=== PATIENT | male | born 1975 | race African-American/Black ===

== ENCOUNTER 2017-09-25 09:41 | Emergency (ER) | payer SELFPAY ==
[2016-02-10 08:52] VITALS: BP 133/118
[~2017-09-25] VITALS: Ht 167.6 cm; Wt 108.9 kg
[2017-09-25 10:14] LABS: NEGATIVE OBC STREP NEG; POSITIVE OBC STREP POS
[2017-09-25 10:47] LABS: OBC FLU VALID
[2017-09-25] MEDS ORDERED: DEXA4TAB PO (10:48)
[2017-09-25] MEDS ORDERED: AMOX500C PO (10:48)
--- NOTE | 2017-09-25 10:49 | PHYS DOC ---
Past Medical History Past Medical History: Diabetes-Type II Past Surgical History: No Surgical History Additional Past Surgical Histo: bilateral carpal tunnel release Alcohol Use: None Drug Use: None Adult General Chief Complaint Chief Complaint: SORE THROAT HPI HPI Patient is a 41 year old male presents to the emergency department with a 2 day history of sore throat with a fever 102 yesterday. Patient states he has had continued throat pain with no relief. He denies taking medication for the fever. He denies sick contact. Review of Systems Review of Systems Constitutional: fever denies chills [] Eyes: Denies change in visual acuity, redness, or eye pain [] HENT: Denies nasal congestion C/o sore throat [] Respiratory: Denies cough or shortness of breath [] Cardiovascular: No additional information not addressed in HPI [] GI: Denies abdominal pain, nausea, vomiting, bloody stools or diarrhea [] : Denies dysuria or hematuria [] Musculoskeletal: Denies back pain or joint pain [] Integument: Denies rash or skin lesions [] Neurologic: Denies headache, focal weakness or sensory changes [] Endocrine: Denies polyuria or polydipsia [] All other systems were reviewed and found to be within normal limits, except as documented in this note. Allergies Allergies Allergies Coded Allergies Type Severity Reaction Last Updated Verified No Known Drug Allergies 05/04/15 No Physical Exam Physical Exam Constitutional: Well developed, well nourished, no acute distress, non-toxic appearance. [] HENT: Normocephalic, atraumatic, bilateral external ears normal, oropharynx moist, no oral exudates, nose normal. Bilateral TM normal, throat with erythema , no exudate noted no uvla deviation. Eyes: PERRLA, EOMI, conjunctiva normal, no discharge. [] Neck: Normal range of motion, no tenderness, supple, no stridor. [] Cardiovascular:Heart rate regular rhythm, no murmur [] Lungs & Thorax: Bilateral breath sounds clear to auscultation [] Skin: Warm, dry, no erythema, no rash. [] Extremities: No tenderness, no cyanosis, no clubbing, ROM intact, no edema. [] Neurologic: Alert and oriented X 3, normal motor function, normal sensory function, no focal deficits noted. [] Psychologic: Affect normal, judgement normal, mood normal. [] Current Patient Data Vital Signs Vital Signs Date Time Temp Pulse Resp B/P (MAP) Pulse Ox O2 Delivery O2 Flow Rate FiO2 09/25/17 09:46 98.7 100 20 145/94 (111) 100 Room Air 98.7 Lab Values Laboratory Tests Test 09/25/17 09:52 09/25/17 09:59 Group A Streptococcus Rapid Positive (NEGATIVE) Influenza Type A Antigen Negative (NEGATIVE) Influenza Type B Antigen Negative (NEGATIVE) EKG EKG [] Radiology/Procedures Radiology/Procedures [] Course & Med Decision Making Course & Med Decision Making Pertinent Labs and Imaging studies reviewed. (See chart for details) Rapid strep positive, influenza negative. Patient will be placed on Amoxicillin and decadron. He will be discharged home in stable condition. Recommended Tylenol or Ibuprofen for fever, chills. Recommended plenty of fluids. Change tooth brush 24 hours after being on antibiotics. Signs and symptoms to return to the emergency department has been provided. Patient was recommended to followup with primary care in 5-7 days. Patient agrees with discharge instructions, treatment regimen and followup recommendations. [] Dragon Disclaimer Dragon Disclaimer This electronic medical record was generated, in whole or in part, using a voice recognition dictation system. Departure Departure Impression: Primary Impression: Strep throat Disposition: HOME, SELF-CARE Condition: STABLE Referrals: NO PCP (PCP) Patient Instructions: Strep Throat, [id number] Additional Instructions: Activity as tolerated Antibiotic as prescribed do not stop taking the antibiotic even if you should start feeling better Tylenol or Ibuprofen for fever, or chills Drink plenty of fluids Change your tooth brush in 24 hours Followup with primary care provider in 5-7 days Return to emergency department as needed for signs and symptoms that become worse. Scripts Dexamethasone (DEXAMETHASONE) 4 Mg Tablet 2 TAB PO DAILY, #10 TAB Prov: ANNETTE LEE [employer] OPERATOR 09/25/17 Amoxicillin (AMOXICILLIN) 500 Mg Capsule 1 CAP PO TID, #30 CAP Prov: ANNETTE LEE [employer] OPERATOR 09/25/17 ANNETTE LEE APRN Sep 25, 2017 10:49
== END 2017-09-25 10:57 | disposition home or self-care (01) ==
LOC: ER 09:41
DX: J02.0 Streptococcal pharyngitis (principal); E11.9 Type 2 diabetes mellitus without complications
CPT/HCPCS: 87804; 87880; 99284

== ENCOUNTER 2019-03-20 05:39 | Emergency (ER) | payer SELFPAY ==
[~2019-03-20] VITALS: Ht 165.1 cm; Wt 106.1 kg
[~2019-03-20 05:39] MED LIST: AMOX500C PO; DEXA4TAB PO
[2019-03-20 05:53] VITALS: BP 133/87
[2019-03-20] MEDS ORDERED: AMOX875T PO (05:57)
--- NOTE | 2019-03-20 06:00 | PHYS DOC ---
Past Medical History Past Medical History: Diabetes-Type II Past Surgical History: Other Additional Past Surgical Histo: bilateral carpal tunnel release Alcohol Use: None Drug Use: None Adult General Chief Complaint Chief Complaint: SORE THROAT HPI HPI Patient is a 43 year old male sore throat 2 days worse with swallowing sharp severe similar to when he had strep throat a couple years back he has also been coughing subjective fever no relief with [id number] agents. No other medical problems other than type 2 diabetes which she is treating with diet and exercise Review of Systems Review of Systems Constitutional: Subjective fever Eyes: Denies change in visual acuity, redness, or eye pain [] Cardiovascular: No additional information not addressed in HPI GI: Denies abdominal pain, nausea, vomiting, bloody stools or diarrhea Neurologic: Denies headache, focal weakness or sensory changes All other systems were reviewed and found to be within normal limits, except as documented in this note. Current Medications Current Medications Current Medications Medications (Trade) Dose Ordered Sig/Honey Start Time Stop Time Status Last Admin Dose Admin Ketorolac Tromethamine (Toradol 30mg Vial) 30 mg 1X ONCE 03/20/19 06:00 03/20/19 06:01 UNV Allergies Allergies Allergies Coded Allergies Type Severity Reaction Last Updated Verified No Known Drug Allergies 05/04/15 No Physical Exam Physical Exam Constitutional: Well developed, well nourished, no acute distress, non-toxic appearance. [] HENT: Erythematous tonsils with palatal petechiae shotty lymphadenopathy anterior Neck: Normal range of motion, no tenderness, supple, no stridor. [] Cardiovascular:Heart rate regular rhythm, no murmur [] Lungs & Thorax: Bilateral breath sounds clear to auscultation [] Abdomen: Bowel sounds normal, soft, no tenderness, no masses, no pulsatile masses. [] Skin: Warm, dry, no erythema, no rash. [] Back: No tenderness, no CVA tenderness. [] Extremities: No tenderness, no cyanosis, no clubbing, ROM intact, no edema. [] Neurologic: Alert and oriented X 3, normal motor function, normal sensory function, no focal deficits noted. [] Psychologic: Affect normal, judgement normal, mood normal. [] EKG EKG [] Radiology/Procedures Radiology/Procedures [] Course & Med Decision Making Course & Med Decision Making Pertinent Labs and Imaging studies reviewed. (See chart for details) []Given prior history of strep throat as well as the palatal petechiae we'll treat presumptively with amoxicillin also Toradol was given in the emergency room for symptom relief patient was reassured Blood pressure was in the 130s afebrile not tachycardic see nurse's note for full triage vitals Dragon Disclaimer Dragon Disclaimer This electronic medical record was generated, in whole or in part, using a voice recognition dictation system. Departure Departure Impression: Primary Impression: Pharyngitis Disposition: HOME, SELF-CARE Condition: STABLE Referrals: NO PCP (PCP) Patient Instructions: Sore Throat, [id number]-[id number] Scripts Amoxicillin (AMOXICILLIN) 875 Mg Tablet 1 TAB PO BID, #14 TAB Prov: LUCINDA NEFF MD 03/20/19 LUCINDA NEFF MD Mar 20, 2019 06:00
[2019-03-20] MEDS ORDERED: KETOROLAC 30 MG/ML VIAL. IM ONE (06:15)
== END 2019-03-20 06:15 | disposition home or self-care (01) ==
LOC: ER 05:39
DX: J02.9 Acute pharyngitis, unspecified (principal); R05 Cough; R50.9 Fever, unspecified; R23.3 Spontaneous ecchymoses; R59.1 Generalized enlarged lymph nodes; E11.9 Type 2 diabetes mellitus without complications
CPT/HCPCS: 96372; 99283; J1885

== ENCOUNTER 2021-03-18 03:35 | Emergency (ER) | payer OTHER ==
[~2021-03-18] VITALS: Ht 165.1 cm; Wt 98.0 kg
[~2021-03-18 03:35] MED LIST changes: +AMOX875T PO
[2021-03-18 05:05] VITALS: BP 137/88
[2021-03-18] MEDS ORDERED: DEXAMETHASONE 4 MG TABLET PO ONE (06:15)
[2021-03-18] MEDS ORDERED: BENZ1LOZ48 PO (06:17)
--- NOTE | 2021-03-18 06:18 | PHYS DOC ---
Past Medical History Past Medical History: Diabetes-Type II Past Surgical History: Other Additional Past Surgical Histo: bilateral carpal tunnel release Smoking Status: Never Smoker Alcohol Use: None Drug Use: None General Adult EDM: Chief Complaint: SORE THROAT HPI: HPI: 45-year-old -[place] male who reports to myself no significant past medical history (diabetes per emr) presents the ED with complaints of sore throat for the past 4 days, came to ED today because he woke up and felt as if his throat was "dry and sand was in it." Reports associated dry cough. No associated anorexia, lack of taste or smell, fatigue, weakness, nausea, vomiting, diarrhea, fever or chills, speech changes, difficulties breathing, nasal congestion or rhinorrhea, postnasal drip, rash or head or neck swelling. Patient with no prior history of allergic reaction, asthma or seasonal allergies. Patient is not a tobacco smoker denies any breathing discomfort. No known history of Covid and states he completed his second Covid vaccine in December. Review of Systems: Review of Systems: Constitutional: Denies fever or chills. [] Eyes: Denies change in visual acuity or eye discharge HENT: Denies nasal congestion or rhinorrhea Respiratory: Denies hemoptysis or shortness of breath. [] Cardiovascular: Denies chest pain or edema. [] GI: Denies nausea, vomiting, Musculoskeletal: Denies back pain or joint pain. [] Integument: Denies rash or diaphoresis Neurologic: Denies headache or neck pain Lymphatic: Denies swollen glands. [] Psychiatric: Denies depression or anxiety. [] Heart Score: C/O Chest Pain: No Risk Factors: Risk Factors: DM, Current or recent (<one month) smoker, HTN, HLP, family history of CAD, obesity. Risk Scores: Score 0 - 3: 2.5% MACE over next 6 weeks - Discharge Home Score 4 - 6: 20.3% MACE over next 6 weeks - Admit for Clinical Observation Score 7 - 10: 72.7% MACE over next 6 weeks - Early Invasive Strategies Allergies: Allergies: Allergies Coded Allergies Type Severity Reaction Last Updated Verified No Known Drug Allergies 05/04/15 No Physical Exam: PE: Constitutional: Well developed, well nourished, no acute distress, non-toxic appearance. HENT: Normocephalic, atraumatic, normal oropharynx/is patent, no pharyngeal erythema or exudates, uvula midline, equal tonsillitis, no tonsillar exudate Eyes: EOMI, conjunctiva normal, no discharge, Neck: Normal range of motion, no LAD Cardiovascular: S1/2 present, regular rhythm Lungs & Thorax: Speaking in full sentences, bilateral equal chest rise, no tachypnea or increased work of breathing, no drooling, controlling secretions Skin: Warm, dry, no erythema, no rash. [] Extremities: No tenderness, no cyanosis, Neurologic: Alert and oriented X 3, no focal deficits noted. [] Psychologic: Normal affect, calm mood Current Patient Data: Labs: Laboratory Tests Test 03/18/21 05:14 Group A Streptococcus Rapid Negative (NEGATIVE) Vital Signs: Vital Signs Date Time Temp Pulse Resp B/P (MAP) Pulse Ox O2 Delivery O2 Flow Rate FiO2 03/18/21 05:05 97.8 68 16 137/88 (104) 97 Room Air 97.8 EKG: EKG: [] Radiology/Procedures: Radiology/Procedures: [] Impression: Per Centor score -1 points 1% - 2.5% likelihood of strep No further testing nor antibiotics. Course & Med Decision Making: Course & Med Decision Making Pertinent Labs and Imaging studies reviewed. (See chart for details) Concern for acute pharyngitis 4 days with associated dry cough., Covid unlikely given history, declines testing. Pt HD stable. Normal-appearing throat exam. Rapid strep negative. Dexamethasone given in ED and will prescribe Cepacol. Will discharge home with strict ED return precautions were given for difficulties breathing, fever, worsening pain, difficulties controlling secretions, head or neck swelling or any concerning symptoms. Encouraged urgent outpatient follow-up with PMD and ENT for definitive management. Life- threatening processes were considered but are low suspicion at this time, given history, physical exam and ED workup. Pt was educated on all prescription medications and adverse effects. All patient's questions were answered and pt was stable at time of discharge. Life/limb-threatening differential includes but is not limited to, arun's angina, peritonsillar abscess, retropharyngeal abscess, epiglottitis, bacterial tracheitis, uvulitis, sepsis, mastoiditis, traumatic injury, carotid/vertebral dissection, intracranial aneurysms or neurologic process. I spoken with the patient and her caregivers. I explained the patient's condition, diagnoses and treatment plan based on the information available to me at this time. I have answered the patient and her caregiver's questions and addressed any concerns. The patient and her caregivers have a good understanding of patient's diagnosis, condition and treatment plan as can be expected at this point. Vital signs have been stable. Patient's condition is stable and appropriate for discharge from the emergency department. Patient will pursue further outpatient evaluation with primary care physician or other designated or consulting physician as outlined in the discharge instructions. The patient and/or caregivers are agreeable to this plan of care and follow-up instructions have been explained in detail. The patient and/or caregivers have received these instructions in written form and have expressed an understanding of the discharge instructions. The patient and/or caregivers are aware that any significant change of condition or worsening of symptoms should prompt immediate return to this or the closest emergency department or call to 911. Ellen Disclaimer: Ellen Disclaimer: This electronic medical record was generated, in whole or in part, using a voice recognition dictation system. Departure Departure Impression: Primary Impression: Acute pharyngitis Disposition: 01 HOME / SELF CARE / HOMELESS Condition: STABLE Referrals: NO PCP (PCP) Follow-up with your primary care physician in 24 to 48 hours for reevaluation or FOLLOW UP WITH FAMILY MEDICINE: [address] [facility], [facility] [address] [place] [address] Patient Instructions: Viral and Bacterial Pharyngitis Additional Instructions: FOLLOW UP WITH ENT: For definitive management Otolaryngology [address] [facility], [address] [place] [address] [facility] [address] [address] EMERGENCY DEPARTMENT GENERAL DISCHARGE INSTRUCTIONS Thank you for coming to [facility] Emergency Department (ED) today and trusting us with you care. We trust that you had a positive experience in our Emergency Department. If you wish to speak to the department management, you may call the Director at [phone]. YOUR FOLLOW UP INSTRUCTIONS ARE FOLLOWS: 1. Do you have a private Doctor? If you do not have a private doctor, please ask for a resource list of physicians or clinics that may be able to assist you with follow up care. 2. The Emergency Physicain has interpreted your x-rays. The X-Ray specialist will also review them. If there is a change in the findings, you will be notified in 48 hours when at all possible. 3. A lab test or culture has been done, your results will be reviewed and you will be notified if you need a change in treatment. ADDITIONAL INSTRUCTIONS AND INFORMATION: 1. Your care today has been supervised by a physician who is specially trained in emergency care. Many problems require more than one evaluation for a complete diagnosis and treatment. We recommend that you schedule your follow up appointment as recommended to ensure complete treatment of you illness or injury. If you are unable to obtain follow up care and continue to have a problem, or if your condition worsens, we recommend that you return to the ED. 2. We are not able to safely determine your condition over the phone nor are we able to give sound medical advice over the phone. For these safety reasons, if you call for medical advice we will ask you to come to the ED for further evaluation. 3. If you have any questions regarding these discharge instructions please call the ED at [phone]. SAFETY INFORMATION: In the interest of safety, wellness, and injury prevention; we encourage you to wear your sealbelt, if you smoke; quite smoking, and we encourage family to use a protective helmet for bicycling and other sporting events that present an increased risk for head injury. IF YOUR SYMPTOMS WORSEN OR NEW SYMPTOMS DEVELOP, OR YOU HAVE CONCERNS ABOUT YOUR CONDITION; OR IF YOUR CONDITION WORSENS WHILE YOU ARE WAITING FOR YOUR FOLLOW UP APPOINTMENT; EITHER CONTACT YOUR PRIMARY CARE DOCTOR, THE PHYSICIAN WHOSE NAME AND NUMBER YOU WERE GIVEN, OR RETURN TO THE ED IMMEDIATELY. Scripts Benzocaine/Menthol (CEPACOL SORE THROAT LOZENGE) 1 Each Lozenge 1 TAB PO Q4HRS for sore throat for 3 Days, #18 TAB 0 Refills Prov: CHANA CROWDER DO 03/18/21 CHANA CROWDER DO Mar 18, 2021 06:18
== END 2021-03-18 06:35 | disposition home or self-care (01) ==
LOC: ER 03:35
DX: J02.9 Acute pharyngitis, unspecified (principal); E11.9 Type 2 diabetes mellitus without complications
CPT/HCPCS: 87070; 87880; 99283